=== PATIENT | male | born 1965 | race African-American/Black ===

== ENCOUNTER 2017-07-12 16:28 | Emergency (ER) | payer MEDICARE, MEDICAID ==
[~2017-07-12] VITALS: Ht 180.3 cm; Wt 204.1 kg
--- NOTE | 2017-07-12 16:58 | EKG ---
[address] [address] Test Date: 2017-07-12 Test Time: 16:37:59 Pat Name: NERY LAY Department: Room: Gender: M Healthcare Corporate Account Director: JAMIL : 1965 Requested By: BERENICE MADRIGAL Order Number: [id number] Reading MD: Measurements Intervals [place] Rate: 66 P: 55 NM: 160 QRS: 4 QRSD: 102 T: 16 QT: 422 QTc: 444 Interpretive Statements SINUS RHYTHM NO SPECIFIC ECG ABNORMALITIES RI6.01 No previous ECG available for comparison
[2017-07-12 17:01] LABS: BASO # 0.1 x10^3/uL (0.0-0.2); BASO % 1 % (0-3); EOS # 0.2 x10^3/uL (0.0-0.7); EOS % 3 % (0-3); HEMATOCRIT 44.9 % (39.0-53.0); LYMPH # 1.5 x10^3/uL (1.0-4.8); LYMPH % 27 % (24-48); MEAN CORPUSCULAR HEMOGLOBIN 30 pg (25-35); MEAN CORPUSCULAR HGB CONC 33 g/dL (31-37); MEAN CORPUSCULAR VOLUME 90 fL (79-100); MONO # 0.5 x10^3/uL (0.0-1.1); MONO % 8 % (0-9); NEUT # 3.5 x10^3uL (1.8-7.7); NEUT % 61 % (31-73); PLATELET COUNT 277 x10^3/uL (140-400); RED BLOOD COUNT 5.02 x10^6/uL (4.30-5.70); RED CELL DISTRIBUTION WIDTH 14.8 % (11.5-14.5); WHITE BLOOD COUNT 5.7 x10^3/uL (4.0-11.0)
--- NOTE | 2017-07-12 17:10 | PHYS DOC ---
Past History Past Medical History: Arthritis, Hypertension Additional Past Medical Histor: diverticulitis Past Surgical History: Gastric Bypass ([id number]) Additional Past Surgical Histo: acromioclavicular joint surgery, colon resection for diverticulitis Smoking: Non-smoker Adult General Chief Complaint Chief Complaint: CHEST PAIN HPI HPI Patient is a very pleasant 51-year-old male who unfortunately suffers from morbid obesity. He states about 3 days ago, he began expressing some right- sided neck discomfort, worse with movement and palpation, which he thought was just attributable to over exertion while helping his mother clean her house. He states that 2 days ago, he began experiencing pain that radiated down the right side of his neck towards his right shoulder and around his chest, and today began expressing pain that radiates down his right back, towards his right hip area. He denies any definite injury. He has not had any numbness or weakness. He has not had any fevers or chills. Exertion, as well as movements of his upper body, as well as deep breathing, or worsen his pain. He denies any left- sided chest discomfort. He has not had any numbness, weakness, or incontinence. Other than as stated above, there are no alleviating, or exacerbating factors to his symptoms. Review of Systems Review of Systems Constitutional: Denies fever or chills [] Eyes: Denies change in visual acuity, redness, or eye pain [] HENT: Denies nasal congestion or sore throat [] Respiratory: Denies cough or shortness of breath [] Cardiovascular: No additional information not addressed in HPI [] GI: Denies abdominal pain, nausea, vomiting, bloody stools or diarrhea [] : Denies dysuria or hematuria, denies any dark urine [] Musculoskeletal: Denies back pain or joint pain, except as noted in the history of present illness [] Integument: Denies rash or skin lesions [] Neurologic: Denies headache, focal weakness or sensory changes [] Endocrine: Denies polyuria or polydipsia [] All other systems were reviewed and found to be within normal limits, except as documented in this note. Current Medications Current Medications Current Medications Medications (Trade) Dose Ordered Sig/Caro Start Time Stop Time Status Last Admin Dose Admin Morphine Sulfate (Morphine 4mg Syringe) 4 mg PRN Q15MIN PRN 07/12/17 17:00 07/13/17 16:59 Allergies Allergies Allergies Coded Allergies Type Severity Reaction Last Updated Verified No Known Drug Allergies 07/12/17 No Physical Exam Physical Exam PHYSICAL EXAM: CONSTITUTIONAL: Well developed, well nourished HEAD: normocephalic, atraumatic EENT: PERRL, EOMI. Conjunctivae normal color, sclerae non-icteric; moist mucous membranes. NECK: Supple, non-tender; no meningismus. LUNGS: Lungs CTA, breathing even and unlabored. Normal air movement. HEART: Regular rate and rhythm, no murmur CHEST: No deformity; non-tender ABDOMEN: The abdomen is soft, and non-tender, no masses or bruits. EXTREM: Normal ROM; no deformity, no calf tenderness. Normal pulses palpable in all extremities, including the feet bilaterally, strong bilateral dorsalis pedis pulses. There is no pedal edema. MUSCULOSKELETAL: There is diffuse tenderness to palpation of the right lateral neck, shoulder, and anterior chest wall, which somewhat does reproduce the patient's pain. There is no definite focal tenderness to palpation. There is also diffuse tenderness to palpation of the right lumbar spinal paraspinal muscles, without any midline vertebral tenderness to palpation to the thoracic or lumbar spine. SKIN: No rash; no diaphoresis NEURO: Alert; normal speech and cognition; CN's grossly intact; strength grossly intact without focal deficit. BACK: No CVA TTP. Current Patient Data Lab Results Laboratory Tests Test 07/12/17 16:35 White Blood Count 5.7 x10^3/uL (4.0-11.0) Red Blood Count 5.02 x10^6/uL (4.30-5.70) Hemoglobin 15.0 g/dL (13.0-17.5) Hematocrit 44.9 % (39.0-53.0) Mean Corpuscular Volume 90 fL (79-100) Mean Corpuscular Hemoglobin 30 pg (25-35) Mean Corpuscular Hemoglobin Concent 33 g/dL (31-37) Red Cell Distribution Width 14.8 % (11.5-14.5) H Platelet Count 277 x10^3/uL (140-400) Neutrophils (%) (Auto) 61 % (31-73) Lymphocytes (%) (Auto) 27 % (24-48) Monocytes (%) (Auto) 8 % (0-9) Eosinophils (%) (Auto) 3 % (0-3) Basophils (%) (Auto) 1 % (0-3) Neutrophils # (Auto) 3.5 x10^3uL (1.8-7.7) Lymphocytes # (Auto) 1.5 x10^3/uL (1.0-4.8) Monocytes # (Auto) 0.5 x10^3/uL (0.0-1.1) Eosinophils # (Auto) 0.2 x10^3/uL (0.0-0.7) Basophils # (Auto) 0.1 x10^3/uL (0.0-0.2) EKG EKG [Normal sinus rhythm at a rate of 66 bpm, normal axis, normal intervals, there are no acute ischemic ST/T changes.] Radiology/Procedures Radiology/Procedures [PROCEDURE: CHEST PA & LATERAL EXAM: Chest, 2 views. HISTORY: Shortness of air. Chest pain. COMPARISON: 06/22/2013 FINDINGS: Frontal and lateral views of chest are obtained. There is bilateral central interstitial prominence likely due to atelectasis. There is no nichelle congestion or consolidated infiltrate. There is no pleural effusion or pneumothorax. The heart is normal in size. IMPRESSION: No acute pulmonary finding.] Course & Med Decision Making Course & Med Decision Making Pertinent Labs and Imaging studies reviewed. (See chart for details) [6:00 PM: The patient's condition remained stable. Clinical suspicion is for musculoskeletal etiology of the patient's workup is negative, no cardiac etiology is suspected, the patient's symptoms have been going on for several days, EKG and cardiac enzymes are negative. The importance of close follow-up with primary care provider was discussed with the patient. Return precautions were discussed in detail.] Dragon Disclaimer Dragon Disclaimer This electronic medical record was generated, in whole or in part, using a voice recognition dictation system. Departure Departure: Impression: Primary Impression: Musculoskeletal back pain Disposition: 01 HOME, SELF-CARE Condition: STABLE Referrals: HUBER VANG MD (PCP) Patient Instructions: Back Pain, Adult, Muscle Cramps, [id number] Additional Instructions: Ibuprofen 400-600 mg every 6 hours may help improve your symptoms. Applying a heating pad to the affected area may help improve your symptoms. The prescribed medications may cause drowsiness-use caution while taking. Scripts Diazepam (VALIUM) 5 Mg Tablet 5 MG PO TID PRN for PAIN, #20 TAB Prov: BERENICE MADRIGAL MD 07/12/17 Oxycodone Hcl/Acetaminophen (PERCOCET 5-325 MG TABLET) 1 Each Tablet 1 TAB PO QID, #20 TAB Prov: BERENICE MADRIGAL MD 07/12/17 BERENICE MADRIGAL MD Jul 12, 2017 17:09
[2017-07-12 17:20] LABS: ALBUMIN 3.4 g/dL (3.4-5.0); ALBUMIN/GLOBULIN RATIO 0.9 (1.0-1.7); CALCIUM 8.9 mg/dL (8.5-10.1); CREATININE 0.8 mg/dL (0.7-1.3); GFR 123.3; POTASSIUM 3.4 mmol/L (3.5-5.1); TOTAL BILIRUBIN 0.3 mg/dL (0.2-1.0); TOTAL PROTEIN 7.2 g/dL (6.4-8.2)
[2017-07-12] MEDS: MORPHINE SULFATE 4 MG/ML DISP.SYRIN. IV/SQ PRN ×2 (17:21→17:54)
--- NOTE | 2017-07-12 17:22 | RAD ---
EXAM: Chest, 2 views. HISTORY: Shortness of air. Chest pain. COMPARISON: 06/22/2013 FINDINGS: Frontal and lateral views of chest are obtained. There is bilateral central interstitial prominence likely due to atelectasis. There is no nichelle congestion or consolidated infiltrate. There is no pleural effusion or pneumothorax. The heart is normal in size. IMPRESSION: No acute pulmonary finding. Electronically signed by: Brandy Peña MD (07/12/2017 5:18 PM) [facility]
[2017-07-12 17:53] LABS: BACTERIA,URINE 0 /HPF (0-FEW); BILIRUBIN,URINE NEG (NEG); CLARITY,URINE CLEAR; COLOR,URINE AMBER; GLUCOSE,URINE NEG (NEG); NITRITE,URINE NEG (NEG); RBC,URINE 0 /HPF (0-2); SQUAMOUS EPITHELIAL CELL,UR FEW /LPF; UROBILINOGEN,URINE 4 mg/dL (0.2 mg/dL)
[2017-07-12] MEDS ORDERED: DIAZ5TAB PO (18:01)
[2017-07-12] MEDS ORDERED: OXYC-323 PO (18:01)
[2017-07-12 18:22] VITALS: BP 135/93
== END 2017-07-12 18:25 | disposition home or self-care (01) ==
LOC: ER 16:28
DX: M54.5 Low back pain (principal); M54.2 Cervicalgia; M25.511 Pain in right shoulder; R07.89 Other chest pain; I10 Essential (primary) hypertension; M19.90 Unspecified osteoarthritis, unspecified site; E66.01 Morbid (severe) obesity due to excess calories; Z68.44 Body mass index [BMI] 60.0-69.9, adult
CPT/HCPCS: 36415; 71046; 80053; 81001; 82553; 83690; 84484; 85025; 85379; 85610; 85730; 93005; 96372; 96374; 99285; J2270

== ENCOUNTER → 2019-06-18 | Outpatient (CLI) | payer MEDICARE, MEDICAID ==
[~2019-06-18] MED LIST: DIAZ5TAB PO; IOHEXOL 300 MG/ML 75 ML VIAL. IV ONE; OXYC1TAB15 PO
--- NOTE | 2019-06-18 09:27 | RAD ---
Examination: CT head without and with IV contrast INDICATION: Headaches COMPARISON: None Available. Exposure: One or more of the following individualized dose reduction techniques were utilized for this examination: 1. Automated exposure control 2. Adjustment of the mA and/or kV according to patient size 3. Use of iterative reconstruction technique TECHNIQUE: 5 mm contiguous axial images were obtained from the skull base to the vertex in both bone and soft tissue algorithm without and with IV contrast. FINDINGS: No abnormal attenuation within the brain parenchyma. No evidence of enhancing lesion identified. No evidence of acute intracranial hemorrhage. No extra-axial fluid collections. No mass effect or midline shift. Ventricular size is appropriate. Basal cisterns are patent. No fractures identified.Olson-white differentiation is preserved.Globes and orbits are within normal limits. Paranasal sinuses and mastoid air cells are clear. IMPRESSION: No acute intracranial findings. Electronically signed by: Dejuan Farris MD (06/18/2019 9:25 AM) [id number]
== END | disposition home or self-care (01) ==
LOC: CT 08:50
PROVIDERS: ATTEND Family Medicine
DX: R51 Headache (principal); R68.83 Chills (without fever)
CPT/HCPCS: 70470; Q9967

== ENCOUNTER 2019-10-09 17:07 | Emergency (ER) | payer MEDICARE, MEDICAID ==
[~2019-10-09] VITALS: Ht 181.6 cm; Wt 185.0 kg
[~2019-10-09 17:07] MED LIST changes: -IOHEXOL 300 MG/ML 75 ML VIAL. IV ONE
--- NOTE | 2019-10-09 17:26 | PHYS DOC ---
Past History Past Medical History: Arthritis, Hypertension Additional Past Medical Histor: diverticulitis (OPHELIA ROCKWELL DO) Past Surgical History: Gastric Bypass Additional Past Surgical Histo: acromioclavicular joint surgery, colon resection for diverticulitis (OPHELIA ROCKWELL DO) Smoking: Non-smoker Alcohol Use: None Drug Use: None (OPHELIA ROCKWELL DO) Adult General HPI HPI Patient is a 53-year-old male who presents with left flank pain. Onset was this morning at 0100 hrs. and awoke him from sleep. Patient reports sharp left-sided flank pain that has worsened in intensity since onset. Patient now reports it is 9 out of 10 in severity and continues to originate in left flank and radiates to left groin region. Nothing known makes better, patient reports p.o. intake makes worse. Patient denies any fever, constitutional symptoms, headache, chest pain, shortness of breath, urinary symptoms, gross blood in urine or stool or changes in bowel habits. Patient has urinated and had bowel movement today without relief in symptomology. Associated symptoms include nausea and x1 episode of bright red blood on toilet paper which she attributes to known hemor rhoids. Patient has no history of any cardiac abnormalities, no prior cardiac work-up, denies history of kidney stones. Patient denies any concerning ingestions, travel, or known COVID-19 exposure. Patient has history of diverticulitis in the past but unsure if this felt like prior episodes (OPHELIA ROCKWELL DO) Review of Systems Review of Systems Fourteen body systems of review of systems have been reviewed. See HPI for pertinent positives and negative responses, other weeks all other systems are negative, non-pertinent or non-contributory (OPHELIA ROCKWELL DO) Allergies Allergies Allergies Coded Allergies Type Severity Reaction Last Updated Verified No Known Drug Allergies 07/12/17 No (OPHELIA ROCKWELL DO) Physical Exam Physical Exam Constitutional: Well developed, well nourished, morbidly obese, mild distress from pain, ambulating with cane, non-toxic appearance. HENT: Normocephalic, atraumatic, bilateral external ears normal, oropharynx moist, no oral exudates, nose normal. Eyes: PERRLA, EOMI, conjunctiva normal, no discharge. Neck: Normal range of motion, no tenderness, supple, no stridor. Cardiovascular: Heart rate regular, sinus rhythm, no murmurs rubs or gallops Lungs & Thorax: Bilateral breath sounds diminished bilaterally due to body habitus Abdomen: Bowel sounds normal, soft, no tenderness, no masses, no pulsatile masses. Nonsurgical abdomen, no peritoneal signs Skin: Warm, dry, no erythema, no rash. Back: No tenderness, left CVA tenderness Extremities: No tenderness, no cyanosis, no clubbing, ROM intact, no edema. Neurologic: Alert and oriented X 3, grossly normal motor & sensory function, no focal deficits noted. Psychologic: Affect normal, judgement normal, mood normal. (OPHELIA ROCKWELL DO) Current Patient Data Lab Results Laboratory Tests Test 10/09/19 17:25 White Blood Count 4.3 x10^3/uL (4.0-11.0) Red Blood Count 4.73 x10^6/uL (4.30-5.70) Hemoglobin 14.4 g/dL (13.0-17.5) Hematocrit 43.4 % (39.0-53.0) Mean Corpuscular Volume 92 fL (79-100) Mean Corpuscular Hemoglobin 31 pg (25-35) Mean Corpuscular Hemoglobin Concent 33 g/dL (31-37) Red Cell Distribution Width 13.3 % (11.5-14.5) Platelet Count 253 x10^3/uL (140-400) Neutrophils (%) (Auto) 57 % (31-73) Lymphocytes (%) (Auto) 30 % (24-48) Monocytes (%) (Auto) 7 % (0-9) Eosinophils (%) (Auto) 4 % (0-3) Basophils (%) (Auto) 2 % (0-3) Neutrophils # (Auto) 2.4 x10^3uL (1.8-7.7) Lymphocytes # (Auto) 1.3 x10^3/uL (1.0-4.8) Monocytes # (Auto) 0.3 x10^3/uL (0.0-1.1) Eosinophils # (Auto) 0.2 x10^3/uL (0.0-0.7) Basophils # (Auto) 0.1 x10^3/uL (0.0-0.2) (OPHELIA ROCKWELL DO) EKG EKG EKG ordered and interpreted by myself at 1737 hrs. as sinus rhythm at 85 bpm, unremarkable intervals, no axis deviation, no obvious fascicular blocks, no ischemic changes, no STEMI (OPHELIA ROCKWELL DO) Radiology/Procedures Radiology/Procedures [] (OPHELIA ROCKWELL DO) Impressions: Exam: CT of abdomen and pelvis without contrast INDICATION: Left CVA tenderness TECHNIQUE: Sequential axial images through the abdomen and pelvis obtained following the administration of 75 mL of Omni 300 IV contrast. Sagittal and coronal reformatted images were reconstructed from the axial data and reviewed. Comparisons: None FINDINGS: Heart size is normal. No pericardial effusion. 5 mm nodule right lower lobe series 2 image 12. No pleural effusion. Liver, spleen, pancreas, gallbladder and adrenals are unremarkable. No perinephric inflammation or hydronephrosis. No renal or ureteral calculi are identified. Bladder is distended and appears thin-walled. Prostate is not enlarged. Large and small bowel are unremarkable. Appendix is not identified. No free intra-abdominal air or fluid. No obstruction. Postsurgical changes noted at the stomach. There is mild haziness in the mesenteric fat diffusely. Abdominal aorta has a normal course and caliber. Abdominal vasculature is patent. No enlarged abdominal lymph nodes. No suspicious osseous lesions or acute fractures. IMPRESSION: Mild haziness noted diffusely throughout the mesenteric fat. May relate to enteritis. No evidence for obstruction. Exposure: One or more of the following in the visualized dose reduction techniques were utilized for this examination: 1. Automated exposure control 2. Adjustment of the MA and/or KV according to patient size 3. Use of iterative of reconstructive technique Electronically signed by: Damion Briscoe MD (10/09/2019 7:20 PM) [id number] DICTATED AND SIGNED BY: DAMION BRISCOE MD DATE: 10/09/191919 CC: VINI LAY DO; HUBER VANG MD; OPHELIA ROCKWELL DO ~ (VINI LAY DO) Course & Med Decision Making Course & Med Decision Making Ambulatory patient seen on immediate ER arrival ABCs grossly unremarkable Comprehensive history and physical exam obtained, subsequent diagnostic work-up ordered IV access obtained, 500 mL normal saline, 75 mcg fentanyl and 4 mg Zofran administered ECG obtained and non-concerning; otherwise, all other diagnostic studies pending completion at this time when my shift is ending Comprehensive signout given to oncoming physician, Dr. Lay, who will assume total patient care from here on out. Please defer to his documentation for further medical management of patient (OPHELIA ROCKWELL DO) Course & Med Decision Making The patient's CT scan shows enteritis. No other specific findings. See official read for more details. His labs are unremarkable. His urinalysis is n egative for infection. I believe the patient is has a viral enteritis. He does not meet admission criteria. He is stable for discharge at this time. (VINI LAY DO) Dragon Disclaimer Dragon Disclaimer This electronic medical record was generated, in whole or in part, using a voice recognition dictation system. (OPHELIA ROCKWELL DO) The HEART Score for CP Pts HEART Score for Chest Pain: HEART Score for Chest Pain Response (Comments) Value History Slighlty/Non-Suspicious 0 ECG Normal 0 Age >45 - < 65 1 Risk Factors >3 Risk Factors or Hx CAD 2 Total 3 Risk Factors: Risk Factors: DM, Current or recent (<one month) smoker, HTN, HLP, family history of CAD, obesity. Risk Scores: Score 0 - 3: 2.5% MACE over next 6 weeks - Discharge Home Score 4 - 6: 20.3% MACE over next 6 weeks - Admit for Clinical Observation Score 7 - 10: 72.7% MACE over next 6 weeks - Early Invasive Strategies (OPHELIA ROCKWELL DO) Departure Departure: Impression: Primary Impression: Enteritis Disposition: 01 HOME/RESIDENCE PRIOR TO ADM Condition: STABLE Referrals: HUBER VANG MD (PCP) Patient Instructions: Abdominal Pain (Nonspecific) Justification of Admission: Justification of Admission: Justification of Admission Dx: N/A (OPHELIA ROCKWELL DO) Justification of Admission Dx: N/A (VINI LAY DO) OPHELIA ROCKWELL DO Oct 09, 2019 17:26 VINI LAY DO Oct 09, 2019 19:44
[2019-10-09] MEDS ORDERED: IOHEXOL 300 MG/ML 75 ML VIAL. IV ONE (17:30)
[2019-10-09] MEDS ORDERED: IV NORMAL SALINE 500ML 500 ML IV ONE (17:30)
[2019-10-09] MEDS ORDERED: ONDANSETRON PF 4 MG/2 ML VIAL. IVP ONE (17:30)
[2019-10-09 17:39] LABS: BASO # 0.1 x10^3/uL (0.0-0.2); BASO % 2 % (0-3); EOS # 0.2 x10^3/uL (0.0-0.7); EOS % 4 % (0-3); HEMATOCRIT 43.4 % (39.0-53.0); HEMOGLOBIN 14.4 g/dL (13.0-17.5); LYMPH # 1.3 x10^3/uL (1.0-4.8); LYMPH % 30 % (24-48); MEAN CORPUSCULAR HEMOGLOBIN 31 pg (25-35); MEAN CORPUSCULAR HGB CONC 33 g/dL (31-37); MEAN CORPUSCULAR VOLUME 92 fL (79-100); MONO # 0.3 x10^3/uL (0.0-1.1); MONO % 7 % (0-9); NEUT # 2.4 x10^3uL (1.8-7.7); NEUT % 57 % (31-73); PLATELET COUNT 253 x10^3/uL (140-400); RED BLOOD COUNT 4.73 x10^6/uL (4.30-5.70); RED CELL DISTRIBUTION WIDTH 13.3 % (11.5-14.5); WHITE BLOOD COUNT 4.3 x10^3/uL (4.0-11.0)
--- NOTE | 2019-10-09 17:52 | EKG ---
[address] [address] Test Date: 2019-10-09 Test Time: 17:32:49 Pat Name: NERY LAY Department: Room: Gender: M Lmsw: JAMIL : 1965 Requested By: OPHELIA ROCKWELL Order Number: [id number] Reading MD: Measurements Intervals [place] Rate: 85 P: 55 NM: 156 QRS: 11 QRSD: 94 T: 20 QT: 374 QTc: 445 Interpretive Statements SINUS RHYTHM NORMAL ECG RI6.02 No previous ECG available for comparison
[2019-10-09 18:29] LABS: CALCIUM 8.6 mg/dL (8.5-10.1); CREATININE 0.8 mg/dL (0.7-1.3); GFR 122.4; POTASSIUM 3.9 mmol/L (3.5-5.1)
[2019-10-09 18:33] LABS: ALBUMIN 3.1 g/dL (3.4-5.0); ALBUMIN/GLOBULIN RATIO 0.9 (1.0-1.7); TOTAL BILIRUBIN 0.2 mg/dL (0.2-1.0); TOTAL PROTEIN 6.4 g/dL (6.4-8.2)
--- NOTE | 2019-10-09 19:15 | RAD ---
Exam: Chest one view INDICATION: Short of air TECHNIQUE: Frontal view of the chest Comparisons: 07/12/2017 FINDINGS: The cardiomediastinal silhouette and pulmonary vessels are within normal limits. The lung and pleural spaces are clear. IMPRESSION: No acute cardiopulmonary process. Electronically signed by: Damion Stewart MD (10/09/2019 7:12 PM) [id number]
--- NOTE | 2019-10-09 19:23 | RAD ---
Exam: CT of abdomen and pelvis without contrast INDICATION: Left CVA tenderness TECHNIQUE: Sequential axial images through the abdomen and pelvis obtained following the administration of 75 mL of Omni 300 IV contrast. Sagittal and coronal reformatted images were reconstructed from the axial data and reviewed. Comparisons: None FINDINGS: Heart size is normal. No pericardial effusion. 5 mm nodule right lower lobe series 2 image 12. No pleural effusion. Liver, spleen, pancreas, gallbladder and adrenals are unremarkable. No perinephric inflammation or hydronephrosis. No renal or ureteral calculi are identified. Bladder is distended and appears thin-walled. Prostate is not enlarged. Large and small bowel are unremarkable. Appendix is not identified. No free intra-abdominal air or fluid. No obstruction. Postsurgical changes noted at the stomach. There is mild haziness in the mesenteric fat diffusely. Abdominal aorta has a normal course and caliber. Abdominal vasculature is patent. No enlarged abdominal lymph nodes. No suspicious osseous lesions or acute fractures. IMPRESSION: Mild haziness noted diffusely throughout the mesenteric fat. May relate to enteritis. No evidence for obstruction. Exposure: One or more of the following in the visualized dose reduction techniques were utilized for this examination: 1. Automated exposure control 2. Adjustment of the MA and/or KV according to patient size 3. Use of iterative of reconstructive technique Electronically signed by: Damion Stewart MD (10/09/2019 7:20 PM) [id number]
[2019-10-09 20:24] LABS: BILIRUBIN,URINE NEG (NEG); CLARITY,URINE CLEAR; COLOR,URINE YELLOW; GLUCOSE,URINE NEG (NEG); NITRITE,URINE NEG (NEG); RBC,URINE RARE /HPF (0-2)
[2019-10-09 20:25] LABS: BACTERIA,URINE 0 /HPF (0-FEW)
[2019-10-09] MEDS ORDERED: HYDR-3165 PO (20:49)
[2019-10-09] MEDS ORDERED: HYDROcodone/APAP 7.5/325MG 1 TAB TABLET PO ONE (21:00)
[2019-10-09 21:05] VITALS: BP 130/86
== END 2019-10-09 21:05 | disposition home or self-care (01) ==
LOC: ER 17:07
DX: K52.9 Noninfective gastroenteritis and colitis, unspecified (principal); M19.90 Unspecified osteoarthritis, unspecified site; I10 Essential (primary) hypertension; Z98.84 Bariatric surgery status
CPT/HCPCS: 36415; 71045; 74177; 80053; 81001; 83690; 84484; 85025; 93005; 96361; 96374; 96375; 99285; J2405; J3010; J7040; Q9967

== ENCOUNTER → 2019-10-11 | Outpatient (CLI) | payer MEDICARE, MEDICAID ==
[2019-10-09 21:05] VITALS: BP 130/86
[~2019-10-11] MED LIST changes: +HYDR-3165 PO
--- NOTE | 2019-10-11 10:02 | RAD ---
ABDOMEN LTD History: Left lower quadrant pain Comparison: October 09, 2019 CT abdomen pelvis Findings: Sonographic images directed toward the site of concern in left lower quadrant are submitted. No sonographic abnormality is demonstrated in this region. The left paracentral fat-containing ventral hernia as seen on CT is not well distinguished by ultrasound, uncertain if this is site of patient's pain. There is some nonspecific heterogeneity of the visualized spleen. Left kidney measured 11.7 x 6.4 x 5.8 cm, no hydronephrosis. Impression: 1. No sonographic abnormality at area of concern in the left lower quadrant. Left paracentral ventral fat-containing hernia as seen on CT is not well demonstrated by ultrasound if this is in the area of patient's pain. 2. There is nonspecific heterogeneity of the spleen. Electronically signed by: Lew Jane MD (10/11/2019 9:59 AM) [id number]
== END | disposition home or self-care (01) ==
LOC: US 07:40
PROVIDERS: ATTEND Family Medicine
DX: K43.9 Ventral hernia without obstruction or gangrene (principal); G89.4 Chronic pain syndrome
CPT/HCPCS: 76705

== ENCOUNTER → 2020-06-05 | Outpatient (CLI) | payer MEDICARE, MEDICAID ==
[2020-06-05 18:50] LABS: BASO % 1 % (0-3); EOS # 0.2 x10^3/uL (0.0-0.7); EOS % 5 % (0-3); HEMOGLOBIN 14.2 g/dL (13.0-17.5); LYMPH # 0.9 x10^3/uL (1.0-4.8); LYMPH % 28 % (24-48); MEAN CORPUSCULAR HEMOGLOBIN 31 pg (25-35); MEAN CORPUSCULAR HGB CONC 34 g/dL (31-37); MEAN CORPUSCULAR VOLUME 92 fL (79-100); MONO # 0.2 x10^3/uL (0.0-1.1); MONO % 7 % (0-9); NEUT % 60 % (31-73); PLATELET COUNT 305 x10^3/uL (140-400); RED BLOOD COUNT 4.55 x10^6/uL (4.30-5.70); WHITE BLOOD COUNT 3.3 x10^3/uL (4.0-11.0)
[2020-06-05 18:58] LABS: BILIRUBIN,URINE SMALL (NEG); CLARITY,URINE HAZY; COLOR,URINE AMBER; GLUCOSE,URINE NEG (NEG); UROBILINOGEN,URINE 0.2 mg/dL (0.2 mg/dL)
[2020-06-05 18:59] LABS: BACTERIA,URINE 0 /HPF (0-FEW); NITRITE,URINE NEG (NEG); RBC,URINE RARE /HPF (0-2); SQUAMOUS EPITHELIAL CELL,UR FEW /LPF; WBC,URINE RARE /HPF (0-4)
[2020-06-05 19:03] LABS: ALBUMIN 3.7 g/dL (3.4-5.0); ALBUMIN/GLOBULIN RATIO 1.1 (1.0-1.7); CALCIUM 8.9 mg/dL (8.5-10.1); CREATININE 0.9 mg/dL (0.7-1.3); GFR 106.4; POTASSIUM 3.9 mmol/L (3.5-5.1); TOTAL BILIRUBIN 0.4 mg/dL (0.2-1.0); TOTAL PROTEIN 7.2 g/dL (6.4-8.2)
[2020-06-06 11:26] LABS: THYROID STIM HORMONE (TSH) 0.878 uIU/mL (0.358-3.740)
[2020-06-07 05:40] LABS: HEMOGLOBIN A1C 5.4 % (4.8-5.6)
[2020-06-08 13:09] LABS: FREE PSA/PSA RATIO 16.7 % (.); PSA FREE 0.05 ng/mL; PSA TOTAL 0.3 ng/mL (0.0-4.0)
[2020-06-11 11:10] LABS: TESTOSTERONE FREE 1.57 ng/dL (5.00-21.00); TESTOSTERONE TOTAL 75 ng/dL (264-916)
== END ==
LOC: LAB 17:16
PROVIDERS: ATTEND Family Medicine
DX: H61.21 Impacted cerumen, right ear (principal); E66.01 Morbid (severe) obesity due to excess calories; E11.9 Type 2 diabetes mellitus without complications; E78.5 Hyperlipidemia, unspecified; E55.9 Vitamin D deficiency, unspecified; I10 Essential (primary) hypertension; R35.1 Nocturia; R20.2 Paresthesia of skin; E07.9 Disorder of thyroid, unspecified; N39.0 Urinary tract infection, site not specified; R06.02 Shortness of breath; J45.901 Unspecified asthma with (acute) exacerbation; Z79.899 Other long term (current) drug therapy
CPT/HCPCS: 36415; 80053; 80061; 81001; 83036; 84153; 84154; 84402; 84403; 84443; 85025